=== PATIENT | female | born 1950 | race Two or more races ===

== ENCOUNTER 2018-07-01 10:59 | Outpatient (CLI) | payer OTHER | END 2018-07-01 11:04 | disposition home or self-care (01) | LOC: RAD 10:59 | DX: N64.59 Other signs and symptoms in breast (principal); R07.89 Other chest pain ==

== ENCOUNTER 2021-04-02 08:04 | Outpatient (CLI) | payer OTHER | END 2021-04-02 08:08 | disposition home or self-care (01) | LOC: MAMO-SONO 08:04 | DX: N64.59 Other signs and symptoms in breast (principal); Z12.31 Encounter for screening mammogram for malignant neoplasm of breast ==

== ENCOUNTER 2023-01-08 09:27 | Outpatient (CLI) | payer OTHER | END 2023-01-08 09:34 | disposition home or self-care (01) | LOC: MAMO-SONO 09:27 | PROVIDERS: ATTEND Obstetrics & Gynecology | DX: Z12.31 Encounter for screening mammogram for malignant neoplasm of breast (principal); N64.4 Mastodynia; R10.2 Pelvic and perineal pain ==

== ENCOUNTER 2025-04-17 10:36 | Outpatient (CLI) | payer OTHER | END 2025-04-17 10:45 | disposition home or self-care (01) | LOC: MAMO-SONO 10:36 | PROVIDERS: ATTEND Obstetrics & Gynecology | DX: N64.4 Mastodynia (principal) ==